=== PATIENT | male | born 1990 | race Asian ===

== ENCOUNTER 2018-01-07 09:48 | Inpatient (IN) | payer MEDICAID ==
[~2018-01-07] VITALS: Ht 177.8 cm; Wt 84.7 kg
[2018-01-07 10:37] VITALS: BP 148/76
[2018-01-07] MEDS ORDERED: LOPERAMIDE HCL 2 MG CAPSULE PO PRN (11:15)
[2018-01-07] MEDS ORDERED: HydrOXYzine PAMOATE 50 MG CAPSULE PO PRN (11:15)
[2018-01-07] MEDS ORDERED: TUBERCULIN, PURIFIED PROTEIN DERIVATIVE 5 TU/0.1 ML SYG ID ONE (11:15)
[2018-01-07] MEDS ORDERED: ZOLPIDEM TARTRATE 10 MG TABLET PO PRN (11:15)
[2018-01-07] MEDS ORDERED: GuaiFENesin/D-METHORPHAN [SUGAR-FREE] 200-20MG/10 ML SYRUP UDCUP PO PRN (11:15)
[2018-01-07] MEDS ORDERED: PROMETHAZINE HCL 25 MG TABLET PO PRN (11:15)
[2018-01-07] MEDS ORDERED: OLANZapine 5 MG RAPDIS TABLET PO PRN (11:15)
[2018-01-07] MEDS ORDERED: MAGNESIUM HYDROXIDE SUSPENSION 30 ML UDCUP PO PRN (11:15)
[2018-01-07] MEDS ORDERED: ACETAMINOPHEN 325 MG TABLET PO PRN (11:15)
[2018-01-07] MEDS ORDERED: MAG HYDROX/AL HYDROX/SIMETH ES 30 ML SUSPENSION UDCUP PO PRN (11:15)
[2018-01-07] MEDS ORDERED: ALBU8HFA IH (12:42)
[2018-01-07] MEDS ORDERED: OLAN10TA3 PO (12:42)
[2018-01-07] MEDS: LORazepam 2 MG TABLET PO PRN (16:40)
[2018-01-07] MEDS: THIAMINE HCL 100 MG TABLET PO SCH (16:40)
[2018-01-07 17:12] VITALS: BP 128/72
[2018-01-07] MEDS: OLANZapine 5 MG RAPDIS TABLET PO SCH (21:45)
[2018-01-08 06:10] VITALS: BP 126/79
[2018-01-08 09:20] LABS: AMPHET/METH SCREEN,URINE NEGATIVE (NEGATIVE); BARBITURATE SCREEN, URINE NEGATIVE (NEGATIVE); BENZODIAZEPINES SCREEN,URINE NEGATIVE (NEGATIVE); CANNABINOID SCREEN,URINE NEGATIVE (NEGATIVE); COCAINE SCREEN,URINE NEGATIVE (NEGATIVE); METHADONE SCREEN, URINE NEGATIVE (NEGATIVE); OPIATE SCREEN,URINE NEGATIVE (NEGATIVE)
[2018-01-08 09:22] LABS: PHENCYCLIDINE SCREEN,URINE NEGATIVE (NEGATIVE)
[2018-01-08 09:23] VITALS: BP 128/83
[2018-01-08 09:32] LABS: APPEARANCE,URINE CLOUDY (CLEAR); GLUCOSE, URINE (UA) NEGATIVE (NEGATIVE); KETONES,URINE >=80 mg/dL (NEGATIVE); LEUKOCYTE ESTERASE ,URINE NEGATIVE (NEGATIVE); NITRATE,URINE NEGATIVE (NEGATIVE); OCCULT BLOOD,URINE SMALL (NEGATIVE); PROTEIN,URINE TRACE (NEGATIVE); UROBILINOGEN,URINE 0.2 mg/dL (<=1.0)
[2018-01-08 09:36] LABS: BILIRUBIN,URINE PRELIM. POSITIVE (NEGATIVE)
[2018-01-08 10:09] LABS: BACTERIA,URINE None Seen /HPF (None Seen); CALCIUM OXALATE CRYSTALS,UR Moderate /LPF (None Seen); SQUAMOUS EPITHELIAL CELL,UR Few /LPF (None Seen); WBC,URINE None Seen /HPF (0-5)
[2018-01-08 10:10] LABS: MUCUS,URINE Moderate LPF (None Seen)
[2018-01-08] MEDS: THIAMINE HCL 100 MG TABLET PO SCH ×2 (10:43→16:20)
[2018-01-08] MEDS: FOLIC ACID 1 MG TABLET PO SCH (10:43)
[2018-01-08] MEDS: MULTIVITAMINS WITH MINERALS, THERAPEUTIC TABLET PO SCH (10:43)
[2018-01-08] MEDS: LORazepam 2 MG TABLET PO PRN ×2 (12:27→20:43)
[2018-01-08] MEDS ORDERED: ALBUTEROL SULFATE HFA 90 MCG/PUFF 8 GM INHALER IH PRN (14:30)
[2018-01-08] MEDS: OLANZapine 5 MG RAPDIS TABLET PO SCH (20:43)
[2018-01-09 06:00] VITALS: BP 129/70
[2018-01-09 08:04] LABS: BASOPHILS % (AUTO) 0.6 % (0.0-2.0); EOSINOPHILS % (AUTO) 6.3 % (1.0-6.0); HEMATOCRIT 42.9 % (41-53); HEMOGLOBIN 14.9 g/dL (13.5-17.5); LYMPHOCYTES # (AUTO) 1.8 K/uL (1.0-4.8); LYMPHOCYTES % (AUTO) 24.7 % (22.0-44.0); MEAN CORPUSCULAR HEMOGLOBIN 31.5 pg (26.0-34.0); MEAN CORPUSCULAR HGB CONC 34.6 G/dL (31.0-37.0); MEAN CORPUSCULAR VOLUME 91 fL (80-100); MONOCYTES # (AUTO) 0.7 K/uL (0.1-1.0); MONOCYTES % (AUTO) 9.8 % (2.0-9.0); NEUTROPHILS # (AUTO) 4.4 K/uL (1.8-7.7); NEUTROPHILS % (AUTO) 58.6 % (40.0-70.0); PLATELET COUNT (AUTO) 365 K/uL (150-450); RED BLOOD CELL COUNT(AUTO) 4.72 MIL/uL (4.50-5.90); RED CELL DISTRIBUTION WIDTH 12.8 % (11.5-14.5)
[2018-01-09 08:11] LABS: HEMOGLOBIN A1C 5.6 % (4.5-6.2)
[2018-01-09 08:18] VITALS: BP 129/74
[2018-01-09 08:29] LABS: ALANINE AMINOTRANSFERASE 38 U/L (12-78); ALKALINE PHOSPHATASE 54 U/L (46-116); ANION GAP 9 mmol/L (8-16); ASPARTATE AMINOTRANSFERASE 20 U/L (15-37); BILIRUBIN,TOTAL 0.4 mg/dL (0.1-1.0); CALCIUM, TOTAL 8.9 mg/dL (8.8-10.5); CARBON DIOXIDE 28 mmol/L (22-29); CHLORIDE 103 mmol/L (98-107); CHOLESTEROL 156 mg/dL (131-200); CREATININE 0.72 mg/dL (0.60-1.30); FREE T4 (FREE THYROXINE) 1.07 ng/dL (0.76-1.46); GLOMERULAR FILTR. RATE CALC > 60 mL/min (>60); GLUCOSE,RANDOM 90 mg/dL (70-110); HDL CHOLESTEROL 39 mg/dL (40-60); LDL CHOL (CALC.) 104 mg/dL (0-130); POTASSIUM 3.1 mmol/L (3.5-5.1); SODIUM SERUM 140 mmol/L (136-145); THYROID STIMULATING HORMONE 1.31 uIU/mL (0.36-3.74); TOTAL PROTEIN, SERUM 7.7 g/dL (6.4-8.2); TRIGLYCERIDES 67 mg/dL (15-150); UREA NITROGEN, BLOOD 11 mg/dL (7-18)
[2018-01-09] MEDS ORDERED: FLUoxetine HCL 20 MG CAPSULE PO SCH (09:00)
[2018-01-09] MEDS: MULTIVITAMINS WITH MINERALS, THERAPEUTIC TABLET PO SCH (10:14)
[2018-01-09] MEDS: FOLIC ACID 1 MG TABLET PO SCH (10:14)
[2018-01-09] MEDS: THIAMINE HCL 100 MG TABLET PO SCH ×2 (10:14→16:10)
[2018-01-09 16:17] VITALS: BP 120/78
[2018-01-09] MEDS ORDERED: OLAN5TAB30 PO (16:27)
[2018-01-09] MEDS ORDERED: FLUO-191 PO (16:27)
[2018-01-09] MEDS ORDERED: POTASSIUM CHLORIDE 20 MEQ ER TABLET PO ONE (16:45)
[2018-01-09] MEDS: TRIHEXYPHENIDYL HCL 5 MG TABLET PO SCH (16:58)
[2018-01-09] MEDS: OLANZapine 5 MG RAPDIS TABLET PO SCH (20:08)
[2018-01-10 06:13] VITALS: BP 119/64
[2018-01-10 08:22] VITALS: BP 119/64
[2018-01-10] MEDS ORDERED: TRIH5TAB2 PO ×4 (08:42→09:37)
[2018-01-10] MEDS ORDERED: FLUO-191 PO ×3 (08:42→09:37)
[2018-01-10] MEDS: TRIHEXYPHENIDYL HCL 5 MG TABLET PO SCH (08:55)
[2018-01-10] MEDS ORDERED: OLAN7.5T2 PO (08:55)
[2018-01-10] MEDS: THIAMINE HCL 100 MG TABLET PO SCH (08:56)
[2018-01-10] MEDS: MULTIVITAMINS WITH MINERALS, THERAPEUTIC TABLET PO SCH (08:56)
[2018-01-10] MEDS: FOLIC ACID 1 MG TABLET PO SCH (08:56)
[2018-01-10] MEDS ORDERED: FLUoxetine HCL 20 MG CAPSULE PO SCH (09:00)
[2018-01-10 09:08] LABS: ANION GAP 6 mmol/L (8-16); CALCIUM, TOTAL 9.2 mg/dL (8.8-10.5); CARBON DIOXIDE 31 mmol/L (22-29); CHLORIDE 102 mmol/L (98-107); CREATININE 0.86 mg/dL (0.60-1.30); GLOMERULAR FILTR. RATE CALC > 60 mL/min (>60); GLUCOSE,RANDOM 91 mg/dL (70-110); POTASSIUM 3.6 mmol/L (3.5-5.1); SODIUM SERUM 139 mmol/L (136-145); UREA NITROGEN, BLOOD 9 mg/dL (7-18)
[2018-01-10] MEDS ORDERED: OLAN5TAB40 PO (09:37)
== END 2018-01-10 14:26 | disposition home or self-care (01) | DRG 751 ==
LOC: B3A 12:35 → B2S 12:35 → UNDOADMIN 12:35
PROVIDERS: ADMIT Psychiatry & Neurology Psychiatry; ATTEND Psychiatry & Neurology Psychiatry
DX: F29 Unspecified psychosis not due to a substance or known physiological condition (principal); F70 Mild intellectual disabilities; J45.909 Unspecified asthma, uncomplicated; Z88.1 Allergy status to other antibiotic agents; Z88.2 Allergy status to sulfonamides
CPT/HCPCS: 80074; 80307; 82533; 83036; 84439; 84443; 86592